=== PATIENT | male | born 1980 | race African-American/Black ===

== ENCOUNTER 2020-01-01 19:19 | Emergency (ER) | payer SELFPAY ==
[~2020-01-01] VITALS: Ht 177.8 cm; Wt 106.1 kg
[2020-01-01 19:30] VITALS: BP_SYST 149
--- NOTE | 2020-01-01 19:54 | NUR ---
Patient triaged and placed in waiting room. VSS and patient appears in no acute distress at this time. Accompanied by self, awaiting available bed, and MD notified of need for MSE.
--- NOTE | 2020-01-01 22:49 | NUR ---
Patient to ER bed 06 to gown for evaluation. Side rails up. Report given to ARCHIE Fang
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
[2020-01-01] MEDS ORDERED: LIDOCAINE 1% 10 MG/ML, 20 ML MDV INJ ONE (23:15)
[2020-01-01] MEDS ORDERED: LIDOCAINE 1%, 20 ML MDV 20 ML ONE (23:27)
--- NOTE | 2020-01-01 23:30 | NUR ---
Bedside Examining patient and performing laceration repair with 3.0 ethilon.
[2020-01-02] MEDS ORDERED: BACITRACIN ZINC 15 GM TOPICAL OINTMENT TP ONE
--- NOTE | 2020-01-02 | NUR ---
Laceration Repair complete. states that he has place 7 sutures of 3.0 ethilon.
[2020-01-02] MEDS ORDERED: BACITRACIN 1 GM OINT TP ONE (00:06)
--- NOTE | 2020-01-02 00:16 | NUR ---
Pt given 500mg Tylenol PO per Dr. Brown Verbal Orders.
[2020-01-02 00:17] VITALS: BP_SYST 144
--- NOTE | 2020-01-02 00:17 | NUR ---
Patient given written and verbal discharge instructions and verbalizes understanding. ER MD discussed with patient the results and treatment provided. Patient in stable condition. ID arm band removed. No IV. Pt suture cleaned, dressed with bacitracin, non-stick guaze, wrapped in clean/dry dressing. Rx of [place] 5/325 and Tylenol given. Patient educated on pain management and to follow up with PMD. Pain Scale 2/10. Opportunity for questions provided and answered. Medication side effect fact sheet provided.
[2020-01-02] MEDS ORDERED: ACETAMINOPHEN 500 MG TABLET ONE (00:21)
== END 2020-01-02 00:17 | disposition home or self-care (01) ==
LOC: SED 19:19
DX: S61.210A Laceration without foreign body of right index finger without damage to nail, initial encounter (principal); W45.8XXA Other foreign body or object entering through skin, initial encounter; Y93.89 Activity, other specified; Y92.89 Other specified places as the place of occurrence of the external cause; Y99.8 Other external cause status
CPT/HCPCS: 12002; 99283; J2001